=== PATIENT | male | born 1955 | race Caucasian/White ===

== ENCOUNTER 2025-06-27 00:30 | Emergency (ER) | payer MEDICARE, OTHER, SELFPAY ==
[2025-06-27 00:45] VITALS: BP 143/81
--- NOTE | 2025-06-27 02:26 | ED.GENMED ---
History of Present Illness
General
Chief Complaint: Visual Problem
Source: patient
Exam Limitations: none
Time Seen by Provider: 06/27/25 02:25
Nursing documentation reviewed up to this point in time: agreed with
History of Present Illness
History of Present Illness:
70-year-old male with past medical history of TIA, hypertension, hyperlipidemia presents to the ER today with concerns of blurry vision out of the left eye while reading. He reports that this started a few hours ago and he was reading on his phone
on [place] prior to bed. He started noticed that vision was blurrier than usual. He was not wearing his glasses at the time. He subsequently covered up his both eyes individually and noticed that the visual changes seem to occur only
on the left eye. He describes the vision as words being distorted and reports that words he reads out of his left eye appear 'squiggly and not straight'. He denies curtain coming down over the vision, he denies any visual field cuts. He denies
any floaters in his vision. He denies any double vision. He reports that his vision appears to be normal when both eyes are open. He denies any headache, numbness or tingling in his upper or lower extremities, denies any confusion or speech
changes. Does have a history of prior TIA affecting the left side of his body. He denies any eye pain. He states that nothing got into his eye. He reports that his symptoms have been steadily improving since they started but were present for a
few hours. 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 Reports that he has nearsightedness and will sometimes wear glasses when driving. He denies any trauma to the eye. He denies any neck pain. He is on dual anti-platelet therapy.
Past History
Past History
ED Past Medical History: GERD and Other (Vertigo); Negative Asthma
ED Past Surgical History: Other (Dental implants)
Social History
Tobacco: Non-smoker
Alcohol: None
Drug: None
Personal:
Living: with family
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
Family History
Family History: Other
Review of Systems
Review of Systems
All Other Systems: ROS reviewed and negative except as documented in HPI and ROS
Phy Exam
Physical Exam
Physical Exam:
General: Patient is well appearing and in no acute distress; non-toxic
Skin: Warm and dry, no rashes or lesions
Head: Normocephalic, atraumatic
Eyes: Sclera non-icteric. EOMs intact. Peripheral visual andrews intact bilaterally. Left ocular ultrasound reveals no findings concerning for retinal detachment/posterior vitreous hemorrhage. Left intraocular pressure 10 mmHg. Flouresien staining
reveals no evidence of corneal abrasion or corneal ulceration no foreign body.
Cardiac: Regular rate and rhythm, no murmurs
Pulm: Normal respiratory effort
Neuro: CN II-XII intact, no focal neurologic deficits. Normal finger to nose, heel to gregory. Normal gait.
Psychiatric: Appropriate mood and affect.
Course
Orders/Labs/Results
Orders:
Orders
06/27/25 05:21
Purified Water Eye Wash [Dacriose Eye Wash Solution] 120 ml .ROUTE .STK-MED ONE
Tetracaine HCl [Tetracaine 0.5% Ophthalmic Solution] 1 drop .ROUTE .STK-MED ONE
Vital Signs
Initial and Last Documented VS:
Initial Vital Signs
Temp Pulse Resp BP Pulse Ox
97.5 F 84 20 143/81 97
06/27/25 00:45 06/27/25 00:45 06/27/25 00:45 06/27/25 00:45 06/27/25 00:45
Last Documented Vital Signs
Temp Pulse Resp BP Pulse Ox
97.5 F 77 20 145/86 96
06/27/25 00:45 06/27/25 04:36 06/27/25 00:45 06/27/25 04:36 06/27/25 04:36
MDM/Problems Addressed
Differential Diagnosis Includes:
Differentials include cataracts, retinal detachment, macular degeneration, corneal abrasion, dry eye
MDM/Problems Addressed:
70-year-old male with a past medical history of TIA on dual antiplatelet therapy presents to the ER today with concerns of blurry vision out of his left eye that he noticed when reading. Symptoms have been steadily improving since he has been in
the ER but are still present. With both of his eyes open, his vision is normal but when he covers up his right eye, he noticed that some words appear like they are not straight. He denies blurry vision. On physical exam, his peripheral visual
andrews are intact and he has no carmen visual field cuts. Bedside ocular ultrasound did not show any findings concerning for retinal detachment. His intraocular pressure is normal. He has no findings with fluorescein staining. Reviewed case with
ED attending. No signs concerning for neurologic emergency/amarosis. Discussed close follow-up with ophthalmology this week advised patient to call concerning. Patient expressed understanding. Discussed strict return precautions and return for
worsening symptoms. Patient stable for discharge.
Chronic conditions affecting care:
htn, hlp. GERD
*Pulse Oximetry
SaO2: 97
Oxygen Mode of Delivery: Room air
Patient hypoxic: no
*Critical Care Note
Total Time (30-74mins, 75-104mins- exclusive of procedures): Not Applicable
Data Reviewed
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
Source: patient and records
ED Attending Note
-
Portions of this chart may have been created with voice recognition software.� Occasional wrong word or��sound alike� substitutions may have occurred due to the inherent limitations of voice recognition software.
Discharge Plan
Departure
Patient Disposition: Home (Routine Discharge)
Patient with high blood pressure during this ER visit?: Yes
Condition: Good
Discharge Problem:
Blurred vision, left eye
Instructions: BLOOD PRESSURE
Prescriptions:
No Action
pantoprazole 40 MG tablet,delayed release (DR/EC)
40 mg PO DAILY Qty: 10 0RF
multivitamin Tablet
1 tab PO DAILY
atorvastatin 80 mg Tablet
80 mg PO QPM Qty: 30 1RF
aspirin 81 mg Tablet,Chewable
81 mg PO DAILY Qty: 30 1RF
clopidogrel 75 mg Tablet
75 mg PO DAILY Qty: 19 0RF
amlodipine 2.5 mg tablet
2.5 mg PO DAILY Qty: 30 1RF
Referrals:
Valentino Quevedo DO [Family Provider, Family Practice]
Norma Rodriguez MD [Active, Ophthalmology] - Call in 1-3 days for appt
Activity Restrictions/Additional Instructions:
Please call the attached number to schedule an appointment for follow up-----please say that you were evaluated in the emergency department for your symptoms.
PLEASE RETURN SHOULD YOU DEVELOP AN ACUTE WORSENING OF YOUR SYMPTOMS, VISUAL LOSS, NAUSEA OR VOMITING, CHEST PAIN, SHORTNESS OF BREATH, WEAKNESS ON ONE SIDE OF THE BODY VS THE OTHER, SPEECH CHANGES, CONFUSION, DIFFICULTY AMBULATING, OR ANY OTHER
SIGNS OR SYMPTOMS WORRISOME TO YOU.
Interventions
Interventions:
*Risk Screen - Suicide Last Done: 06/27/25 00:45
*General Assessment Last Done: 06/27/25 00:45
*Neglect/Abuse Screening Last Done: 06/27/25 00:45
*ED- Fall Risk Assessment Last Done: 06/27/25 00:45
*ED COVID-19 Vaccine History Last Done: 06/27/25 00:45
*ED Influenza Vaccine History Last Done: 06/27/25 00:45
*Nursing Disposition Last Done: 06/27/25 04:45
ED- Neurological Assessment Last Done: 06/27/25 01:44
Discharge Date and Time
Discharge Date/Time: 06/27/25 04:45
Print Language: [id number]
[2025-06-27 04:36] VITALS: BP 145/86
== END 2025-06-27 04:45 | disposition home or self-care (01) ==
LOC: EMR 00:30
PROVIDERS: EMERGENCY PHYSICIAN Emergency Medicine; FAMILY PHYSICIAN Family Medicine
DX: H53.8 Other visual disturbances (principal); E78.00 Pure hypercholesterolemia, unspecified; I10 Essential (primary) hypertension; K21.9 Gastro-esophageal reflux disease without esophagitis; Z79.02 Long term (current) use of antithrombotics/antiplatelets; Z86.73 Personal history of transient ischemic attack (TIA), and cerebral infarction without residual deficits
CPT/HCPCS: 99282